=== PATIENT | male | born 1950 | race Caucasian/White ===

== ENCOUNTER 2018-01-28 19:51 | Emergency (ER) | payer OTHER ==
--- NOTE | 2018-01-28 19:57 | PDOC ---
Rapid Medical Evaluation Time Seen by Provider: 01/28/18 19:54 Medical Evaluation: 01/28/18 19:54 I have performed a brief in-person evaluation of this patient. The patient presents with a chief complaint of: epigastric pain x3 days Pertinent physical exam findings: Lungs CTAB. upper abdominal tenderness I have ordered the following: labs, ekg, cxr, ua The patient will proceed to the ED for further evaluation. Discharge Disposition - Diagnosis Abdominal pain - Referrals - Patient Instructions - Post Discharge Activity
[2018-01-28 20:09] VITALS: BP 142/89; PULSE 96; TEMP 99.8; BMI 24.1
[2018-01-28 20:51] LABS: URINE APPEARANCE SLCLOUDY; URINE BILIRUBIN NEGATIVE (<2.0 mg/dL); URINE BLOOD NEGATIVE (NEGATIVE); URINE COLOR YELLOW; URINE GLUCOSE (UA) NEGATIVE (NEGATIVE); URINE KETONE NEGATIVE (NEGATIVE); URINE LEUK ESTERASE NEGATIVE (NEGATIVE); URINE NITRITE NEGATIVE (NEGATIVE); URINE PROTEIN NEGATIVE (NEGATIVE); URINE UROBILINOGEN 4.0 E.U/dl mg/dL (0.2-1.0)
[2018-01-28 21:01] LABS: BASO % 0.7 % (0-2.0); EOS % 3.9 % (0-4.5); HEMATOCRIT 42.6 % (35.4-49); HEMOGLOBIN 14.4 GM/dL (11.7-16.9); LYMPH % 15.2 % (8-40); MCH 30.4 pg (25.7-33.7); MCHC 33.7 g/dl (32.0-35.9); MEAN PLT VOLUME 7.9 fl (7.5-11.1); MONO % 17.8 % (3.8-10.2); NEUT % 62.4 % (42.8-82.8); PLATELET COUNT 263 K/MM3 (134-434); RBC 4.73 M/mm3 (4.00-5.60); WHITE BLOOD COUNT 8.5 K/mm3 (4.0-10.0)
--- NOTE | 2018-01-28 21:34 | PDOC ---
Attending Attestation - Resident Resident Name: Neo Griffith - ED Attending Attestation I have performed the following: I have examined & evaluated the patient, The case was reviewed & discussed with the resident, I agree w/resident's findings & plan, Exceptions are as noted - HPI HPI: 01/29/18 20:54 Mr Jeremy Malik is a 67 yo M p/w 3 days of epigastric abdominal pain in the setting of daily alcohol use Pain is 8/10, no radiation, no prior pain like this (+) nausea, vomiting, and diarrhea (+) etoh use Denies chest pain, SOB 01/29/18 20:57 - Physicial Exam PE: 01/29/18 20:56 GENERAL: A&Ox3, no acute distress EYES: PERRLA, EOMI ENT: Moist mucus membranes LUNGS: CTA, no wheezes HEART: RRR, no murmurs ABDOMEN: Soft, tender to palpation in the epigastrum, no involuntary guarding or rebound NEUROLOGICAL: Cranial nerves II-XII intact. - Medical Decision Making epigastric pain x 3 days Epigastric tenderness 01/29/18 20:57 Laboratory Tests 01/28/18 01/28/18 01/28/18 20:28 20:50 20:50 WBC 8.5 Hgb 14.4 Hct 42.6 Plt Count 263 BUN 11 Creatinine 0.7 Random Glucose 127 H Creatine Kinase 436 H Creatine Kinase Index 1.7 CK-MB (CK-2) 7.45 H Troponin I < 0.02 Urine Ketones Negative Urine Blood Negative Ur Leukocyte Esterase Negative 01/29/18 21:03 Trop neg, CK Index 1.7 Pt improved with PPI CT demonstrates esophageal thickening and hiatal hernia Pt given copies of his CT Pt asked to follow up with PMD with these results Clinical Impression: gastritis, initial presentation
[2018-01-28 21:37] LABS: ALBUMIN 3.8 g/dl (3.4-5.0); ANION GAP 8 (8-16); BLOOD UREA NITROGEN 11 mg/dL (7-18); CALCIUM 10.3 mg/dL (8.5-10.1); CHLORIDE 96 mmol/L (98-107); CO2 31 mmol/L (21-32); CREATININE 0.7 mg/dL (0.7-1.3); GLUCOSE,RANDOM 127 mg/dL (74-106); LIPASE 113 U/L (73-393); SGPT/ALT 34 U/L (12-78); SODIUM 135 mmol/L (136-145); TOT PROT 8.3 g/dl (6.4-8.2)
[2018-01-28 21:41] LABS: ALK PHOS 110 U/L (45-117); BILIRUBIN,TOTAL 0.7 mg/dL (0.2-1.0)
--- NOTE | 2018-01-28 21:42 | PDOC ---
History of Present Illness - General Chief Complaint: Pain Stated Complaint: ABDOMINAL PAIN Time Seen by Provider: 01/28/18 19:54 - History of Present Illness Initial Comments: 01/28/18 22:02 67 year old male with no pmh presents for 3 day hx epigastric abdominal pain. States that the pain is located under the xiphoid, 8/10 in severity and does not radiate. He has never experienced this pain in the past. States that he had a few episodes of nausea, vomiting, and diarrhea all non-bloody non-bilious. Reports drinking 5 beers a day, including today. Denies chest pain, SOB, headache. Allergies: none Smoking: cigars, current Alcohol: 5 drinks every day Drugs: none PCP: Dr. Fragoso Past History - Past Medical History Allergies/Adverse Reactions: Allergies Allergy/AdvReac Type Severity Reaction Status Date / Time No Known Allergies Allergy Verified 01/28/18 22:37 Home Medications: Ambulatory Orders Calcium Carbonate [Tums] 200 mg PO PRN 01/28/18 Famotidine [Pepcid] 20 mg PO DAILY #7 tablet 01/29/18 COPD: No - Suicide/Smoking/Psychosocial Hx Smoking History: Never smoked Review of Systems - Review of Systems Constitutional: No: Chills, Fever Respiratory: No: Cough Cardiac (ROS): No: Chest Pain, Edema ABD/GI: Yes: Diarrhea, Nausea, Vomiting, Other (abdominal pain) *Physical Exam - Vital Signs Last Vital Signs Temp Pulse Resp BP Pulse Ox 99.8 F H 96 H 18 142/89 98 01/28/18 19:57 01/28/18 19:57 01/28/18 19:57 01/28/18 19:57 01/28/18 19:57 - Physical Exam Comments: 01/28/18 22:14 GENERAL: A&Ox3, no acute distress EYES: PERRLA, EOMI ENT: Moist mucus membranes NECK: No JVD LUNGS: CTA, no wheezes HEART: RRR, no murmurs ABDOMEN: Soft, BS present, tender to palpation in the epigastrum, no rebound MUSCULOSKELETAL: No CVA Tenderness EXTREMITIES: 2+ pulses, no edema. NEUROLOGICAL: Cranial nerves II-XII intact. ED Treatment Course - LABORATORY CBC & Chemistry Diagram: 01/28/18 20:50 01/28/18 20:50 - ADDITIONAL ORDERS Additional order review: Laboratory Results 01/28/18 20:28 Urine Color Yellow Urine Appearance Slcloudy Urine pH 7.0 Ur Specific [place] 1.017 Urine Protein Negative Urine Glucose (UA) Negative Urine Ketones Negative Urine Blood Negative Urine Nitrite Negative Urine Bilirubin Negative Urine Urobilinogen 4.0 e.u/dl Ur Leukocyte Esterase Negative 01/28/18 20:50 RBC 4.73 MCV 90.0 MCHC 33.7 RDW 14.0 MPV 7.9 Neutrophils % 62.4 Lymphocytes % 15.2 Monocytes % 17.8 H Eosinophils % 3.9 Basophils % 0.7 Medical Decision Making - Medical Decision Making 01/28/18 22:15 67 year old male with no pmh presents for 3 day hx of epigastric abdominal pain Differential: acute pancreatitis, gastritis, peptic ulcer, GERD, CBC wnl LFTs normal [place] normal Lipase normal -EKG sinus lauren -UA normal -will get CT abdomen with contrast -IVF 1000cc bolus -famotidine IV -NPO for now 01/29/18 01:44 CT showed distal esophageal thickening and small hiatal hernia labs negative will DC home on famotidine and GI referral *DC/Admit/Observation/Transfer Diagnosis at time of Disposition: Abdominal pain - Discharge Dispostion Disposition: HOME Condition at time of disposition: Stable Decision to Admit order: No - Prescriptions Prescriptions: Famotidine [Pepcid] 20 mg PO DAILY #7 tablet - Referrals Referrals: Nahun Fragoso MD [Primary Care Provider] - Amauri Dawson MD [Staff Physician] - - Patient Instructions Additional Instructions: You were seen in the hospital for abdominal pain. Your blood tests were negative. Your CAT scan showed thickening of distal esophagus and a small hiatal hernia which may cause acid reflux. Recommendations: Please drink plenty of fluids Please take famotidine 20mg twice a day for acid reflux Please make an appointment with Dr. Dawson, a supervisor metal cans within 1 week of discharge Please make an appointment with your primary care physician within 1 week of discharge If your symptoms get worse, please return to the emergency room. - Post Discharge Activity
[2018-01-28 21:53] LABS: POTASSIUM 4.2 mmol/L (3.5-5.1); SGOT/AST 38 U/L (15-37)
[2018-01-28] MEDS ORDERED: SODIUM CHLORIDE 1,000 ML IV STA (22:01)
[2018-01-28] MEDS ORDERED: FAMOTIDINE 20 MG/50 ML IVPB 20 MG/50 ML MG IVPB ONE (22:07)
[2018-01-28] MEDS ORDERED: ONDANSETRON 4 MG TABLET PO ONE (22:48)
[2018-01-28] MEDS ORDERED: ONDANSETRON 4 MG/2 ML VIAL ONE (22:50)
--- NOTE | 2018-01-29 09:22 | EKG ---
Test Reason : Blood Pressure : / mmHG Vent. Rate : 057 BPM Atrial Rate : 057 BPM P-R Int : 168 ms QRS Dur : 090 ms QT Int : 390 ms P-R-T Axes : 055 041 052 degrees QTc Int : 379 ms SINUS BRADYCARDIA VOLTAGE CRITERIA FOR LEFT VENTRICULAR HYPERTROPHY NONSPECIFIC T WAVE ABNORMALITY ABNORMAL ECG NO PREVIOUS ECGS AVAILABLE Confirmed by STARR BLACKWELL MD ([id number]) on 01/29/2018 9:22:09 AM Referred By: Confirmed By:STARR BLACKWELL MD
== END 2018-01-29 02:27 | disposition home or self-care (01) ==
LOC: JER 19:51
PROC: 3E0337Z Introduction of Electrolytic and Water Balance Substance into Peripheral Vein, Percutaneous Approach (ICD-10-PCS; principal; 2018-01-28)
PROC: 3E033GC Introduction of Other Therapeutic Substance into Peripheral Vein, Percutaneous Approach (ICD-10-PCS; 2018-01-28)
DX: R10.84 Generalized abdominal pain (principal); K44.9 Diaphragmatic hernia without obstruction or gangrene
CPT/HCPCS: 36415; 71046-TC-FY; 74177-TC; 80053; 81003; 82550; 82553; 83690; 84484; 85025; 93005; 93010; 99283-25; J7030